=== PATIENT | male | born 1985 | race Two or more races ===

== ENCOUNTER 2017-06-28 18:54 | Emergency (ER) | payer MEDICAID ==
[~2017-06-28] VITALS: Ht 167.6 cm; Wt 93.4 kg
[~2017-06-28 18:54] MED LIST: TRAZODONE
[2017-06-28 19:11] VITALS: BP 119/92
[2017-06-28 19:40] VITALS: BP 128/89
[2017-06-28 21:43] VITALS: BP 128/89
--- NOTE | 2017-06-28 21:46 | Emergency Room Report ---
History of Present Illness General Chief Complaint: Overdose Source: EMS Present Illness HPI 32YOM BIBEMS for drug use EMS states OD but patient states he "ate" 1 "dose" of meth - never had before Denies other drugs, ETOH Homeless Denies other medical problems History of schizophrenia - compliant with trazodone daily Denies SI, HI, AVH Feels well otherwise Allergies: Coded Allergies: No Known Allergies (Unverified , 06/28/17) Patient History Past Medical History: psych hx Past Surgical History: none Pertinent Family History: none Social History: Denies: smoking, alcohol use, drug use Immunizations: UTD Reviewed Nursing Documentation: PMH: Agreed, PSxH: Agreed Nursing Documentation-PMH Past Medical History: No History, Except For History Of Psychiatric Problem: Yes - Bipolar, Schizophrenia Review of Systems All Other Systems: negative except mentioned in HPI Physical Exam Vital Signs Date Time Temp Pulse Resp B/P (MAP) Pulse Ox O2 Delivery O2 Flow Rate FiO2 06/28/17 18:51 98.8 92 18 120/82 95 Room Air Sp02 EP Interpretation: reviewed, normal General Appearance: normal inspection, well appearing, no apparent distress, alert, GCS 15, non-toxic Head: normocephalic, atraumatic Eyes: bilateral eye PERRL, bilateral eye EOMI ENT: normal ENT inspection, hearing grossly normal, normal voice Neck: normal inspection, full range of motion, supple, no bony tend Respiratory: normal inspection, lungs clear, normal breath sounds, no respiratory distress, no retraction, no wheezing Cardiovascular #1: regular rate, rhythm, no edema Gastrointestinal: normal inspection, normal bowel sounds, non tender, soft, no guarding, no hernia Genitourinary: no CVA tenderness Musculoskeletal: normal inspection, back normal, normal range of motion, Megan' s Sign negative Neurologic: normal inspection, alert, oriented x3, responsive, warehouse analyst III-XII nml as tested, motor strength/tone normal, speech normal Psychiatric: normal inspection, judgement/insight normal, mood/affect normal, no suicidal/homicidal ideation, no delusions Skin: normal inspection, normal color, no rash Medical Decision Making Diagnostic Impression: Primary Impression: Polysubstance abuse ER Course Utox + for meth, MJ - patient vehemently denies MJ use VSS. Afebrile. GCS 15 No SI, HI, AVH No acute psychoses Observed in ED - asked for sandwich, place to stay Was given sandwich DC Last Vital Signs Date Time Temp Pulse Resp B/P (MAP) Pulse Ox O2 Delivery O2 Flow Rate FiO2 06/28/17 19:40 97.2 101 20 128/89 99 Room Air Status: improved Disposition: HOME, SELF-CARE Condition: Improved Referrals: NOT CHOSEN IPA/,REFERRING (PCP) Patient Instructions: Finding Treatment for Addiction KATHERINE CABA M.D. Jun 28, 2017 21:46
== END 2017-06-28 21:46 | disposition home or self-care (01) ==
LOC: EDBD 18:54 → EMR 19:55
DX: F15.10 Other stimulant abuse, uncomplicated (principal); F20.9 Schizophrenia, unspecified; Z79.899 Other long term (current) drug therapy
CPT/HCPCS: 80300; 99282; 99283